=== PATIENT | male | born 1995 | race Two or more races ===

== ENCOUNTER 2025-05-13 21:01 | Emergency (ER) | payer MEDICAID ==
[~2025-05-13] VITALS: Ht 177.8 cm; Wt 65.8 kg
[2025-05-14] MEDS ORDERED: KETOROLAC TROMETHAMINE 15 MG/ML VIAL ONE (00:51)
[2025-05-14] MEDS: IV NS 0.9% 1,000 ML BAG IV ONE (00:52)
[2025-05-14] MEDS: KETOROLAC TROMETHAMINE 15 MG/ML VIAL IV ONE (00:52)
[2025-05-14 00:59] LABS: PLATELET COUNT (AUTO) 283 K/uL (150-450); RED BLOOD CELL COUNT(AUTO) 5.05 MIL/uL (4.5-6.0); RED CELL DISTRIBUTION WIDTH 13.5 % (11.5-15.0); WHITE BLOOD COUNT (AUTO) 13.2 K/uL (4.3-11.0)
[2025-05-14 01:09] LABS: CALCIUM, SERUM 8.9 mg/dL (8.5-10.1); CREATININE 0.9 mg/dL (0.6-1.3); SODIUM SERUM 141.0 mmol/L (136-145); UREA NITROGEN, BLOOD 14.0 mg/dL (7-18)
[2025-05-14] MEDS ORDERED: IV NS 0.9% 250 ML IV ONE (01:11)
[2025-05-14] MEDS ORDERED: CT SWABBABLE VALVE TRANS SET 1 EA INFUS.SET MC ONE (01:11)
[2025-05-14] MEDS ORDERED: IOHEXOL-300 100 ML VIAL IV ONE (01:11)
[2025-05-14 01:14] LABS: ASPARTATE AMINOTRANSFERASE 12.0 U/L (15-37); TOTAL PROTEIN, SERUM 8.4 g/dL (6.4-8.2)
[2025-05-14] MEDS ORDERED: LIDOCAINE HCL/MPF 1% 30 ML VIAL IJ ONE (03:26)
[2025-05-14] MEDS ORDERED: SULF1TAB48 PO (04:05)
[2025-05-14] MEDS: LIDOCAINE 1% INJ 50 ML MDV IJ ONE (04:05)
[2025-05-14] MEDS ORDERED: CEFA500C PO (04:05)
[2025-05-14] MEDS ORDERED: SULFAMETH/TRIMETH 800/160 MG 1 UDTAB TABLET ONE (04:08)
[2025-05-14] MEDS: SULFAMETH/TRIMETH 800/160 MG 1 UDTAB TABLET PO ONE (04:09)
[2025-05-14] MEDS ORDERED: CEFTRIAXONE 1GM BAG (ER ONLY) 50 ML IV ONE (04:10)
[2025-05-14] MEDS: CEFTRIAXONE 1 G in IV D5W 50 ML IV ONE (04:11)
[2025-05-14] MEDS ORDERED: CEFAZOLIN 1 GM in IV D5W 50 ML IV ONE (04:30)
[2025-05-14 04:34] VITALS: BP 128/77; TEMP 98.3; O2SAT 96
== END 2025-05-14 04:35 | disposition home or self-care (01) ==
LOC: ER 21:10
DX: R10.20 Pelvic and perineal pain unspecified side (principal); Z20.822 Contact with and (suspected) exposure to COVID-19
CPT/HCPCS: 46050; 99285; 96365; 72193; 96361; 96375; 87426; 87804 ×2; 85025; 80048; 80076; 36415; J1885; J0690; J0696 ×2; J7060 ×2; J7030; J7050; A6407; J3490; Q9967

== ENCOUNTER 2025-05-16 01:29 | Emergency (ER) | payer MEDICAID ==
[~2025-05-16] VITALS: Ht 177.8 cm; Wt 65.8 kg
[~2025-05-16 01:29] MED LIST: CEFA500C PO; SULF1TAB48 PO
[2025-05-16 02:11] VITALS: BP 100/50; TEMP 98.3; O2SAT 100
== END 2025-05-16 02:35 | disposition home or self-care (01) ==
LOC: ER 01:32
DX: K61.0 Anal abscess (principal); Z48.00 Encounter for change or removal of nonsurgical wound dressing